=== PATIENT | male | born 1960 | race Caucasian/White ===

== ENCOUNTER 2025-06-17 07:54 | Inpatient (IN) | payer OTHER ==
[~2025-06-17] VITALS: Ht 172.7 cm; Wt 89.8 kg
[2025-06-17] VITALS (7 sets, daily range): BP systolic 112–127; BP diastolic 49–89; PULSE 70–106; RESP 13–26; TEMP 36.5–36.7; O2SAT 96–98
[2025-06-17] MEDS: MIDAZOLAM HCL 2 MG/2 ML VIAL IV ONE (08:00)
[2025-06-17 08:56] LABS: BASOPHILS % 0.3 % (0.0-2.0); EOSINOPHILS % 0.9 % (0.0-5.0); HEMATOCRIT. 45.6 % (42.0-52.0); HEMOGLOBIN. 15.1 g/dL (14.0-18.0); LYMPHOCYTES % 11.8 % (20.0-50.0); MEAN PLATELET VOLUME 7.2 fl (7.4-10.4); MONOCYTES % 6.9 % (2.0-8.0); NEUTROPHILS % 80.1 % (40.0-76.0); PLATELET 225 x1000/uL (130-400); RED BLOOD CELL COUNT 4.86 mill/uL (4.7-6.1); RED CELL DISTRIBUTION WIDTH 14.4 % (11.6-14.6)
[2025-06-17] MEDS ORDERED: MIDAZOLAM HCL 2 MG/2 ML VIAL IV ONE (09:00)
[2025-06-17] MEDS: OLANZAPINE 10 MG/VIAL IM ONE (09:02)
[2025-06-17 09:11] LABS: INR 1.1
[2025-06-17 09:14] LABS: CREATININE 1.1 mg/dL (0.6-1.3); ETHANOL BLOOD < 10 mg/dL (<10); TROPONIN I HIGH SENSITIVITY < 4 ng/L (3.0-53); UREA NITROGEN BLOOD 13 mg/dL (9-23)
[2025-06-17 09:16] LABS: ASPARTATE AMINOTRANSFERASE 43 IU/L (<34); BILIRUBIN DIRECT 0.2 mg/dL (<=3.0); BILIRUBIN TOTAL 0.9 mg/dL (0.1-1.0); PROTEIN TOTAL 7.0 g/dL (6.0-8.3)
[2025-06-17 09:34] LABS: CLARITY URINE CLEAR (CLEAR); COLOR URINE YELLOW (YELLOW); GLUCOSE URINE NEGATIVE (NEGATIVE); KETONES URINE NEGATIVE (NEGATIVE); LEUKOCYTE ESTERASE URINE NEGATIVE (NEGATIVE); NITRITE URINE NEGATIVE (NEGATIVE); OCCULT BLOOD URINE TRACE (NEGATIVE); PH URINE 6.5 (4.5-8.0); PROTEIN URINE 1+ (NEGATIVE); SPECIFIC GRAVITY URINE 1.049 (1.005-1.030); UROBILINOGEN URINE 0.2 E.U./dL (0.2-1.0)
[2025-06-17 09:58] LABS: *AMPHETAMINES SCREEN URINE NEGATIVE (NEGATIVE); *BARBITURATES SCREEN URINE NEGATIVE (NEGATIVE); *BENZODIAZEPINES SCREEN URINE PRESUMPTIVE POSITIVE (NEGATIVE); *COCAINE SCREEN URINE NEGATIVE (NEGATIVE); CANNABINOID URINE SCREEN PRESUMPTIVE POSITIVE (NEGATIVE); ECSTASY MDMA SCREEN URINE NEGATIVE (NEGATIVE); METHADONE URINE SCREEN NEGATIVE (NEGATIVE); OPIATES URINE SCREEN NEGATIVE (NEGATIVE); PHENCYCLIDINE URINE SCREEN NEGATIVE (NEGATIVE)
[2025-06-17 10:00] LABS: RBC URINE 0-2 /hpf (0-2)
[2025-06-17 10:02] LABS: BACTERIA URINE TRACE
[2025-06-17 10:03] LABS: WBC URINE 0-2 /hpf (0-2)
[2025-06-17] MEDS: SODIUM CHLORIDE 0.9% (SEPSIS BOLUS) IV ONE (10:12)
[2025-06-17] MEDS: VANCOMYCIN 1G PREMIX 200 ML IV ONE (10:13)
[2025-06-17] MEDS: CEFTRIAXONE 1GM/50ML 50 ML IV ONE (10:13)
[2025-06-17 10:19] LABS: TROPONIN I HIGH SENSITIVITY 5 ng/L (3.0-53)
[2025-06-17] MEDS ORDERED: HYDROCODONE/ACETAMINOPHEN 5/325MG TABLET PO PRN (11:15)
[2025-06-17] MEDS ORDERED: CLONIDINE 0.1MG TABLET PO PRN (11:15)
[2025-06-17] MEDS ORDERED: ZOLPIDEM TARTRATE 5MG TABLET PO PRN (11:15)
[2025-06-17] MEDS ORDERED: MAGNESIUM/ALUMINUM HYDROXIDE/SIMETHICONE 30ML UDC PO PRN (11:15)
[2025-06-17] MEDS ORDERED: ACETAMINOPHEN 325MG TABLET PO PRN (11:15)
[2025-06-17] MEDS ORDERED: ONDANSETRON HCL 4MG/2ML INJ IV PRN (11:15)
[2025-06-17] MEDS ORDERED: MORPHINE SULFATE 2 MG/ML INJ (NOT FOR IM USE) IV PRN (11:15)
[2025-06-17] MEDS: IOHEXOL-350 100 ML BOTTLE ONE (11:46)
[2025-06-17] MEDS ORDERED: VANCOMYCIN 1GM/200ML PMX (BAXTER) IV SCH (12:30)
[2025-06-17] MEDS: VANCOMYCIN 750MG/150ML (BAXTER) IV SCH (15:52)
[2025-06-17] MEDS: ENOXAPARIN 30MG/0.3ML SYR SUBCUT SCH (21:00)
[2025-06-18] VITALS: BP 113/69; PULSE 77; RESP 20; TEMP 36.6; O2SAT 95
[2025-06-18 02:00] VITALS: PULSE 66; RESP 18; O2SAT 94
[2025-06-18 04:00] VITALS: TEMP 36.4
[2025-06-18 05:49] VITALS: BP 104/73; PULSE 71; RESP 20; O2SAT 97
[2025-06-18] MEDS ORDERED: PANTOPRAZOLE SODIUM 40 MG/VIAL IV SCH (09:00)
[2025-06-18] MEDS ORDERED: CEFTRIAXONE 1GM/50ML 50 ML IV SCH ×2 (10:00)
== END 2025-06-18 08:59 | disposition left against medical advice (07) | DRG 872 ==
LOC: ER 07:54 → 5EST 10:43 → EDBEDREQ 11:01 → EDBEDREQSVC 11:01 → EDBEDREQTM 11:01 → ENRESERV 11:33
PROVIDERS: ADMIT Internal Medicine; ATTEND Internal Medicine
DX: A41.9 Sepsis, unspecified organism (principal); G93.40 Encephalopathy, unspecified; E87.20 Acidosis, unspecified; Z53.29 Procedure and treatment not carried out because of patient's decision for other reasons; Z79.899 Other long term (current) drug therapy
CPT/HCPCS: 36415; 70496; 70498; 71045; 80048; 80076; 80305; 80320; 81003; 83605; 83735; 84484; 85025; 86850; 86900; 93005; 93970; 99291; A4606; A6449; J0696; J2060; J2250; J3373; J3490; J7030; Q9967; G0480